=== PATIENT | male | born 1945 | race Caucasian/White ===

== ENCOUNTER 2016-12-17 23:17 | Emergency (ER) | payer MEDICARE | END 2016-12-18 01:25 | disposition home or self-care (01) | LOC: D.ER 23:17 | DX: S00.81XA Abrasion of other part of head, initial encounter (principal); W01.0XXA Fall on same level from slipping, tripping and stumbling without subsequent striking against object, initial encounter; Y93.89 Activity, other specified; Y92.019 Unspecified place in single-family (private) house as the place of occurrence of the external cause ==